=== PATIENT | male | born 1960 | race Caucasian/White ===

== ENCOUNTER → 2020-09-04 | Outpatient (CLI) | payer OTHER, BC ==
[~2020-09-04] MED LIST: ASPIR 8181 MG PO; CO Q-10100 MG PO; COREG CR20 MG PO; LEVOTHYROXINE0.2 M1 PO; MOBIC15 MG PO; NORVASC5 MG PO; ROSUVASTATIN CA40 MG PO; SENNA PO; TESTOSTERO200 MG/11 IM; TRAMADOL 50 MG50 MG PO; XARELTO10 MG PO; ZETIA10 MG PO; [UNRECOGNIZED DRUG - CODE] PO
== END ==
LOC: LAB 13:39
PROVIDERS: ATTEND Anesthesiology
DX: Z01.812 Encounter for preprocedural laboratory examination (principal); Z20.828 Contact with and (suspected) exposure to other viral communicable diseases